=== PATIENT | male | born 1995 | race Caucasian/White ===

== ENCOUNTER → 2016-06-02 | Outpatient (CLI) | payer OTHER ==
[2016-06-15 12:48] LABS: CASHEW CLASS 0; CASHEW IGE <0.10 KU/L; HAZELNUT CLASS 2; PEANUT IGE 4.23 KU/L; PECAN NUT CLASS 0; PECAN NUT IGE <0.10 KU/L; PISTACHIO CLASS 0; PISTACHIO IGE <0.10 KU/L; RAST ALMOND CLASS 0; RAST ALMOND IGE <0.10 KU/L; RAST BRAZIL NUT CLASS 0; RAST BRAZIL NUT IGE <0.10 KU/L; RAST HAZELNUT IGE 1.54 KU/L; WALNUT CLASS 0
== END ==
LOC: C.LAB 18:27
PROVIDERS: ATTEND Family Medicine
DX: Z01.82 Encounter for allergy testing (principal)